=== PATIENT | male | born 1945 | race Caucasian/White ===

== ENCOUNTER 2025-05-09 12:07 | Outpatient (RCR) | payer MEDICARE, OTHER, SELFPAY | END 2025-05-09 23:59 | disposition home or self-care (01) | LOC: RPT 12:07 | PROVIDERS: ATTENDING PHYSICIAN Internal Medicine | DX: R53.1 Weakness (principal); R26.89 Other abnormalities of gait and mobility; Z73.6 Limitation of activities due to disability; R26.2 Difficulty in walking, not elsewhere classified; M62.81 Muscle weakness (generalized); N18.6 End stage renal disease | CPT/HCPCS: 97110; 97162 ==

== ENCOUNTER 2025-06-08 12:54 | Outpatient (RCR) | payer MEDICARE, OTHER, SELFPAY | END 2025-06-08 23:59 | disposition home or self-care (01) | LOC: RPT 12:54 | PROVIDERS: ATTENDING PHYSICIAN Internal Medicine | DX: R53.1 Weakness (principal); R26.89 Other abnormalities of gait and mobility; Z73.6 Limitation of activities due to disability; R26.2 Difficulty in walking, not elsewhere classified; M62.81 Muscle weakness (generalized); N18.6 End stage renal disease; Z98.890 Other specified postprocedural states | CPT/HCPCS: 97110; 97164 ==

== ENCOUNTER 2025-07-06 13:42 | Outpatient (RCR) | payer MEDICARE, OTHER, SELFPAY | END 2025-07-06 23:59 | disposition home or self-care (01) | LOC: RPT 13:42 | PROVIDERS: ATTENDING PHYSICIAN Internal Medicine | DX: R53.1 Weakness (principal); R26.89 Other abnormalities of gait and mobility; Z73.6 Limitation of activities due to disability; R26.2 Difficulty in walking, not elsewhere classified; N18.6 End stage renal disease; M62.81 Muscle weakness (generalized); Z98.890 Other specified postprocedural states | CPT/HCPCS: 97110; 97112 ==

== ENCOUNTER 2025-08-10 09:24 | Outpatient (RCR) | payer MEDICARE, OTHER, SELFPAY | END 2025-08-10 23:59 | disposition home or self-care (01) | LOC: RPT 09:24 | PROVIDERS: ATTENDING PHYSICIAN Internal Medicine | DX: M62.81 Muscle weakness (generalized) (principal); R26.89 Other abnormalities of gait and mobility; Z73.6 Limitation of activities due to disability; R26.2 Difficulty in walking, not elsewhere classified; R53.1 Weakness; N18.6 End stage renal disease; Z98.890 Other specified postprocedural states | CPT/HCPCS: 97110; 97112 ==